=== PATIENT | female | born 1980 | race Two or more races ===

== ENCOUNTER 2017-01-30 09:34 | Emergency (ER) | payer SELFPAY ==
[2017-01-30 09:45] VITALS: BP 148/101
[2017-01-30] MEDS ORDERED: ONDANSETRON PF 4 MG/2 ML VIAL. IV ONE (10:00)
[2017-01-30] MEDS ORDERED: IV NORMAL SALINE 1000ML BAG 1,000 ML IV ONE (10:00)
[2017-01-30 10:31] LABS: CREATININE 0.6 mg/dL (0.6-1.0); GFR 112.5
[2017-01-30 10:32] LABS: POTASSIUM 3.8 mmol/L (3.5-5.1)
[2017-01-30 10:46] LABS: BASO % 0 % (0-3); EOS % 2 % (0-3); HEMATOCRIT 36.1 % (36.0-47.0); HEMOGLOBIN 11.3 g/dL (12.0-15.5); LYMPH # 1.9 x10^3/uL (1.0-4.8); LYMPH % 22 % (24-48); MEAN CORPUSCULAR HEMOGLOBIN 26 pg (25-35); MEAN CORPUSCULAR HGB CONC 31 g/dL (31-37); MEAN CORPUSCULAR VOLUME 83 fL (79-100); MONO % 6 % (0-9); NEUT % 71 % (31-73); PLATELET COUNT 316 x10^3/uL (140-400); RED BLOOD COUNT 4.35 x10^6/uL (3.50-5.40); RED CELL DISTRIBUTION WIDTH 15.2 % (11.5-14.5); WHITE BLOOD COUNT 8.6 x10^3/uL (4.0-11.0)
[2017-01-30 10:53] LABS: BILIRUBIN,URINE NEGATIVE (NEG); GLUCOSE,URINE NEGATIVE (NEG); NITRITE,URINE NEGATIVE (NEG); PROTEIN,URINE NEGATIVE (NEG-TRACE); UROBILINOGEN,URINE 0.2 mg/dL (0.2 mg/dL)
[2017-01-30 11:19] LABS: BACTERIA,URINE MANY /HPF (0-FEW); RBC,URINE 0 /HPF (0-2)
--- NOTE | 2017-01-30 11:19 | EKG ---
[facility] [address] [place] [address] Test Date: 2017-01-30 Test Time: 09:59:08 Pat Name: KAREN CRUZ Department: Room: Gender: F Intelligence Senior Sergeant: : 1980 Requested By: ETHEL FIELD Order Number: [id number] Reading MD: Benedicto Avila MD Measurements Intervals [place] Rate: 55 P: 0 VT: 166 QRS: -10 QRSD: 84 T: 11 QT: 426 QTc: 410 Interpretive Statements SINUS RHYTHM ATRIAL PREMATURE COMPLEX(ES) Electronically Signed On 02-03-2017 15:35:15 COMPUTER COMPOSITOR by Benedicto Avila MD
[2017-01-30 11:20] LABS: SQUAMOUS EPITHELIAL CELL,UR MANY /LPF
[2017-01-30] MEDS ORDERED: KETOROLAC 30 MG/ML INJ. IV ONE (11:30)
--- NOTE | 2017-01-30 12:01 | RAD ---
Chest, 2 views, 01/30/2017: History: Cough, nausea and vomiting The heart size and pulmonary vascularity are normal. There is mild linear atelectasis or scarring left base. The lungs are otherwise clear. There is no evidence of pleural fluid. IMPRESSION: Minimal left basilar linear atelectasis or scarring.
--- NOTE | 2017-01-30 12:07 | PHYS DOC ---
Past Medical History Past Medical History: High Cholesterol, Hypertension Past Surgical History: Cholecystectomy Alcohol Use: None Drug Use: None Adult General Chief Complaint Chief Complaint: DIZZY/LIGHT HEADED HPI HPI Patient is a 36 year old female who presents with lightheadedness. She states she feels dizzy which she describes as lightheaded/near fainting. She denies vertigo. Reports this morning she has mild dull bitemporal headache. Not sudden in onset, not the worst headache of her life. She denies fevers/chills, neck stiffness, vision changes, chest pain, palpitations, shortness of breath, nausea, vomiting, diarrhea. 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 At times she has tingling sensation to these fingers on her left hand, not currently present. No extremity weakness, no numbness present currently. She has history of hypertension, states no meds but manages with diet. Review of Systems Review of Systems Constitutional: Denies fever or chills Eyes: Denies change in visual acuity HENT: Denies nasal congestion or sore throat Respiratory: Denies cough or shortness of breath Cardiovascular: Denies chest pain or edema GI: Denies abdominal pain, nausea, vomiting, or diarrhea : Denies dysuria or hematuria Musculoskeletal: Denies back pain or joint pain Integument: Denies rash or skin lesions Neurologic: Reports headache, reports finger numbness All other systems were reviewed and found to be within normal limits, except as documented in this note. Current Medications Current Medications Current Medications Medications (Trade) Dose Ordered Sig/[facility] Start Time Stop Time Status Last Admin Dose Admin Ketorolac Tromethamine (Toradol) 30 mg 1X ONCE 01/30/17 11:30 01/30/17 11:31 DC 01/30/17 11:59 30 MG Ondansetron HCl (Zofran) 4 mg 1X ONCE 01/30/17 10:00 01/30/17 10:02 DC 01/30/17 10:27 4 MG Sodium Chloride 1,000 ml @ 1,000 mls/hr 1X ONCE 01/30/17 10:00 01/30/17 10:59 DC 01/30/17 10:27 1,000 MLS/HR Allergies Allergies Allergies Coded Allergies Type Severity Reaction Last Updated Verified No Known Drug Allergies 07/25/13 No Physical Exam Physical Exam Constitutional: Well developed, well nourished, no acute distress, non-toxic appearance. HENT: Normocephalic, atraumatic, bilateral external ears normal, oropharynx moist, nose normal. no sinus tenderness. Eyes: PERRLA, EOMI, conjunctiva normal, no discharge. Neck: supple, no stridor. no meningismus. Cardiovascular: RRR, no murmurs, no edema. Lungs & Thorax: LCTAB, no wheezing, no respiratory distress. Abdomen: soft, nontender, nondistended. Skin: Warm, dry, no erythema, no rash. Back: No tenderness. Extremities: No tenderness, no edema. Neurologic: Alert and oriented X 3, cranial nerves 2-12 grossly intact, symmetric strength/sensation to upper & lower extremities, no focal deficits noted. Psychologic: Affect normal, judgement normal, mood normal. Current Patient Data Vital Signs Vital Signs Date Time Temp Pulse Resp B/P (MAP) Pulse Ox O2 Delivery O2 Flow Rate FiO2 01/30/17 09:45 98.6 73 16 148/101 (117) 99 Room Air 98.6 Lab Values Laboratory Tests Test 01/30/17 09:50 01/30/17 10:25 White Blood Count 8.6 x10^3/uL (4.0-11.0) Red Blood Count 4.35 x10^6/uL (3.50-5.40) Hemoglobin 11.3 g/dL (12.0-15.5) L Hematocrit 36.1 % (36.0-47.0) Mean Corpuscular Volume 83 fL (79-100) Mean Corpuscular Hemoglobin 26 pg (25-35) Mean Corpuscular Hemoglobin Concent 31 g/dL (31-37) Red Cell Distribution Width 15.2 % (11.5-14.5) H Platelet Count 316 x10^3/uL (140-400) Neutrophils (%) (Auto) 71 % (31-73) Lymphocytes (%) (Auto) 22 % (24-48) L Monocytes (%) (Auto) 6 % (0-9) Eosinophils (%) (Auto) 2 % (0-3) Basophils (%) (Auto) 0 % (0-3) Neutrophils # (Auto) 6.1 x10^3uL (1.8-7.7) Lymphocytes # (Auto) 1.9 x10^3/uL (1.0-4.8) Monocytes # (Auto) 0.5 x10^3/uL (0.0-1.1) Eosinophils # (Auto) 0.1 x10^3/uL (0.0-0.7) Basophils # (Auto) 0.0 x10^3/uL (0.0-0.2) Sodium Level 139 mmol/L (136-145) Potassium Level 3.8 mmol/L (3.5-5.1) Chloride Level 105 mmol/L (98-107) Carbon Dioxide Level 24 mmol/L (21-32) Anion Gap 10 (6-14) Blood Urea Nitrogen 10 mg/dL (7-20) Creatinine 0.6 mg/dL (0.6-1.0) Estimated GFR (Cockcroft-Gault) 112.5 Glucose Level 92 mg/dL (70-99) Calcium Level 9.0 mg/dL (8.5-10.1) Magnesium Level 2.0 mg/dL (1.8-2.4) Urine Collection Type Unknown Urine Color Yellow Urine Clarity Clear Urine pH 6.0 Urine Specific [place] <=1.005 Urine Protein Negative mg/dL (NEG-TRACE) Urine Glucose (UA) Negative mg/dL (NEG) Urine Ketones (Stick) Negative mg/dL (NEG) Urine Blood Negative (NEG) Urine Nitrite Negative (NEG) Urine Bilirubin Negative (NEG) Urine Urobilinogen Dipstick 0.2 mg/dL (0.2 mg/dL) Urine Leukocyte Esterase Small (NEG) Urine RBC 0 /HPF (0-2) Urine WBC 1-4 /HPF (0-4) Urine Squamous Epithelial Cells Many /LPF Urine Bacteria Many /HPF (0-FEW) Laboratory Tests 01/30/17 09:50 Laboratory Tests 01/30/17 09:50 EKG EKG interpreted by me: [id number]: NSR rate 55, no acute ST/T changes, normal intervals , PACs.[] Radiology/Procedures Radiology/Procedures PROCEDURE: CHEST PA & LATERAL Chest, 2 views, 01/30/2017: History: Cough, nausea and vomiting The heart size and pulmonary vascularity are normal. There is mild linear atelectasis or scarring left base. The lungs are otherwise clear. There is no evidence of pleural fluid. IMPRESSION: Minimal left basilar linear atelectasis or scarring. DICTATED and SIGNED BY: FIGUEROA DEE MD DATE: 01/30/17 0956[] Course & Med Decision Making Course & Med Decision Making Pertinent Labs and Imaging studies reviewed. (See chart for details) The patient presents with lightheadedness. Gave IV fluids & pain medication. Headache was mild & no serious cause for lightheadedness was identified. She had some finger tingling which is most consistent with carpal tunnel syndrome particularly given her repetitive work. This does not seem related to acute complaint of near syncope. Recommend rest, hydration, tylenol/ibuprofen for headache. Try wrist splint for symptoms of carpal tunnel. Follow up with primary care in 2-3 days if not improving, may require orthopedic evaluation & possibly surgery. Come back for high fever, severe or sudden onset headache, focal neuro deficit, any otherwise worsening condition. Discharged home in stable condition. Dragon Disclaimer Dragon Disclaimer This electronic medical record was generated, in whole or in part, using a voice recognition dictation system. Departure Departure Impression: Primary Impression: Carpal tunnel syndrome Additional Impression: Lightheadedness Disposition: HOME, SELF-CARE Condition: STABLE Referrals: NO PCP (PCP) GUI DUPREE MD Patient Instructions: Carpal Tunnel Syndrome, [id number], Dizziness, Easy-to- Read Additional Instructions: You were seen in the emergency department today for lightheadedness. Your tests here did not show a serious cause of symptoms. Your hand numbness is related to carpal tunnel syndrome. Try wearing the wrist splint. Take ibuprofen for pain/numbness. Drink fluids to stay hydrated. Follow up with Dr. Dupree or the primary care doctor of your choice in 2-3 days. Come back for high fever, worst headache of your life, severe chest pain or shortness of breath, numbness or weakness in arms or legs, any otherwise worsening condition. Problem Qualifiers ETHEL FIELD MD Jan 30, 2017 12:07
== END 2017-01-30 12:48 | disposition home or self-care (01) ==
LOC: ER 09:34
DX: G56.00 Carpal tunnel syndrome, unspecified upper limb (principal); R42 Dizziness and giddiness; R51 Headache; E78.00 Pure hypercholesterolemia, unspecified; I10 Essential (primary) hypertension
CPT/HCPCS: 36415; 71020; 80048; 81001; 83735; 85025; 87086; 93005; 96361; 96374; 96375; 99285; J1885; J2405; J7030; 96360

== ENCOUNTER 2017-04-02 17:03 | Emergency (ER) | payer OTHER ==
[2017-04-02 17:35] LABS: URINE HCG POC HCG NEGATIVE (Negative)
[2017-04-02 17:53] LABS: ADD MAN DIFF? NO
[2017-04-02 17:57] LABS: BASO % 1 % (0-3); BILIRUBIN,URINE NEGATIVE (NEG); CLARITY,URINE CLEAR; COLOR,URINE YELLOW; EOS # 0.2 x10^3/uL (0.0-0.7); EOS % 2 % (0-3); GLUCOSE,URINE NEGATIVE (NEG); HEMATOCRIT 27.1 % (36.0-47.0); HEMOGLOBIN 8.7 g/dL (12.0-15.5); LYMPH # 1.8 x10^3/uL (1.0-4.8); LYMPH % 24 % (24-48); MEAN CORPUSCULAR HEMOGLOBIN 25 pg (25-35); MEAN CORPUSCULAR HGB CONC 32 g/dL (31-37); MEAN CORPUSCULAR VOLUME 77 fL (79-100); MONO # 0.4 x10^3/uL (0.0-1.1); MONO % 5 % (0-9); NEUT # 5.2 x10^3uL (1.8-7.7); NEUT % 69 % (31-73); NITRITE,URINE NEGATIVE (NEG); PH,URINE 5.5; PLATELET COUNT 323 x10^3/uL (140-400); PROTEIN,URINE NEGATIVE (NEG-TRACE); RED BLOOD COUNT 3.53 x10^6/uL (3.50-5.40); RED CELL DISTRIBUTION WIDTH 15.3 % (11.5-14.5); UROBILINOGEN,URINE 0.2 mg/dL (0.2 mg/dL); WHITE BLOOD COUNT 7.7 x10^3/uL (4.0-11.0)
[2017-04-02 18:03] LABS: BACTERIA,URINE MODERATE /HPF (0-FEW); RBC,URINE 0 /HPF (0-2); WBC,URINE RARE /HPF (0-4)
[2017-04-02 18:04] LABS: SQUAMOUS EPITHELIAL CELL,UR MOD /LPF
[2017-04-02 18:12] LABS: ANION GAP 9 (6-14); BLOOD UREA NITROGEN 8 mg/dL (7-20); BUN/CREATININE RATIO 11 (6-20); CALCIUM 8.8 mg/dL (8.5-10.1); CARBON DIOXIDE 26 mmol/L (21-32); CHLORIDE 104 mmol/L (98-107); CREATININE 0.7 mg/dL (0.6-1.0); GFR 94.2; GLUCOSE 115 mg/dL (70-99); POTASSIUM 3.4 mmol/L (3.5-5.1); SODIUM 139 mmol/L (136-145)
[2017-04-02 18:19] LABS: ALBUMIN 3.4 g/dL (3.4-5.0); ALBUMIN/GLOBULIN RATIO 0.9 (1.0-1.7); ALK PHOS 72 U/L (46-116); ALT (SGPT) 20 U/L (14-59); AST (SGOT) 15 U/L (15-37); TOTAL BILIRUBIN 0.1 mg/dL (0.2-1.0); TOTAL PROTEIN 7.2 g/dL (6.4-8.2)
[2017-04-02] MEDS: MORPHINE SULFATE 10 MG/ML VIAL. IV ×2 (18:26)
[2017-04-02] MEDS: IOHEXOL 300 MG/ML 100ML VIAL. IV ×2 (18:31)
== END 2017-04-02 19:45 | disposition home or self-care (01) ==
LOC: ER 17:03
DX: G89.29 Other chronic pain (principal); M54.5 Low back pain; E78.00 Pure hypercholesterolemia, unspecified; I10 Essential (primary) hypertension; Z90.49 Acquired absence of other specified parts of digestive tract
CPT/HCPCS: 36415; 74177; 80053; 81001; 81025; 85025; 87086; 96374; 99285-25; J2270; Q9967

== ENCOUNTER 2017-06-19 16:37 | Emergency (ER) | payer OTHER | END 2017-06-19 17:22 | disposition home or self-care (01) | LOC: ER 17:22 | DX: J40 Bronchitis, not specified as acute or chronic (principal); J06.9 Acute upper respiratory infection, unspecified; J45.909 Unspecified asthma, uncomplicated; E78.00 Pure hypercholesterolemia, unspecified; I10 Essential (primary) hypertension | CPT/HCPCS: 99283 ==

== ENCOUNTER 2017-11-12 16:55 | Emergency (ER) | payer OTHER ==
[~2017-11-12] VITALS: Ht 170.2 cm; Wt 88.0 kg
[~2017-11-12 16:55] MED LIST: BENZ100C PO; PRED20TA PO; TRAM50TA PO
[2017-11-12 17:12] VITALS: BP 129/76
--- NOTE | 2017-11-12 17:12 | PHYS DOC ---
Past Medical History Past Medical History: Asthma, High Cholesterol, Hypertension Past Surgical History: Cholecystectomy Alcohol Use: Occasionally Drug Use: None Adult General Chief Complaint Chief Complaint: MECHANICAL FALL HPI HPI Patient is a 36 year old female presented to ER today for evaluation of left ankle pain. Patient said she was walking outside this morning to get ready for work. Patient tripped on her left foot, twisted her left ankle. Patient fell on her knees, scratched her knees. Patient denied any head injury, no neck injury, no upper extremities injury. Patient denies any knee pain, she had been walking all day long however whenever she put any weight on her left ankle she started having pain so she came in for evaluation. Review of Systems Review of Systems Constitutional: Denies fever or chills [] Eyes: Denies change in visual acuity, redness, or eye pain [] HENT: Denies nasal congestion or sore throat [] Respiratory: Denies cough or shortness of breath [] Cardiovascular: No additional information not addressed in HPI [] GI: Denies abdominal pain, nausea, vomiting, bloody stools or diarrhea [] : Denies dysuria or hematuria [] Musculoskeletal:Positive for left ankle pain Integument: Denies rash or skin lesions [] Neurologic: Denies headache, focal weakness or sensory changes [] Endocrine: Denies polyuria or polydipsia [] All other systems were reviewed and found to be within normal limits, except as documented in this note. Current Medications Current Medications Current Medications Medications (Trade) Dose Ordered Sig/[facility] Start Time Stop Time Status Last Admin Dose Admin Acetaminophen/ Hydrocodone Bitart (Lortab 5/325) 1 tab 1X ONCE 11/12/17 17:15 11/12/17 17:16 DC 11/12/17 17:26 1 TAB Diphtheria/ Tetanus/Acell Pertussis (Boostrix) 0.5 ml ONCE ONCE 11/12/17 17:15 11/12/17 17:16 DC Ibuprofen (Motrin) 800 mg 1X ONCE 11/12/17 17:15 11/12/17 17:16 DC 11/12/17 17:27 800 MG Allergies Allergies Allergies Coded Allergies Type Severity Reaction Last Updated Verified No Known Drug Allergies 07/25/13 No Physical Exam Physical Exam Constitutional: Well developed, well nourished, no acute distress, non-toxic appearance. [] HENT: Normocephalic, atraumatic, bilateral external ears normal,nose normal. [] Eyes: PERRLA, EOMI, conjunctiva normal, no discharge. [] Neck: Normal range of motion, no tenderness, supple, no stridor. [] Cardiovascular:Heart rate regular rhythm, no murmur [] Lungs & Thorax: Bilateral breath sounds clear to auscultation [] Abdomen: Bowel sounds normal, soft, no tenderness, no masses, no pulsatile masses. [] Skin: superficial skin abrasion on her knees bilaterally. Back: No tenderness, no CVA tenderness. [] Extremities: Left ankle is tender to palpation at the lateral malleous area, left ankle joint is stable. Bilateral knees superficial skin abrasion but there was not bony tenderness in the knees or proximal legs area. Neurologic: Alert and oriented X 3, normal motor function, normal sensory function, no focal deficits noted. [] Psychologic: Affect normal, judgement normal, mood normal. [] Current Patient Data Vital Signs Vital Signs Date Time Temp Pulse Resp B/P (MAP) Pulse Ox O2 Delivery O2 Flow Rate FiO2 11/12/17 17:12 98.2 74 18 129/76 (93) 98 Room Air 98.2 EKG EKG [] Radiology/Procedures Radiology/Procedures xray of left ankle : no fracture or dislocation [] Impressions: left ankle sprain Course & Med Decision Making Course & Med Decision Making Pertinent Labs and Imaging studies reviewed. (See chart for details) WILL PLACE AN AIRCAST ON LEFT ANKLE, DISCHARGE HOME WITH CRUTCHES, PAIN MEDICATION, FOLLOW UP WITH PCP FOR REEVALUATION IN A WEEK. Dragon Disclaimer Dragon Disclaimer This electronic medical record was generated, in whole or in part, using a voice recognition dictation system. Departure Departure Impression: Primary Impression: Sprain of ankle, left Disposition: 01 HOME, SELF-CARE Condition: STABLE Referrals: ANMOL ROJAS MD FOLLOW UP WITH THIS ORTHOPEDIC DOCTOR FOR FURTHER EVALUATION IF YOU CONTINUE TO HAVE PAIN. Patient Instructions: Ankle Sprain Scripts Tramadol Hcl (TRAMADOL HCL) 50 Mg Tablet 50 MG PO Q6HRS PRN for PAIN, #20 TAB Prov: JULIA PERLA DO 11/12/17 JULIA PERLA DO Nov 12, 2017 17:12
[2017-11-12] MEDS ORDERED: IBUPROFEN 800 MG TABLET. PO ONE (17:15)
[2017-11-12] MEDS ORDERED: DIPHTH,PERTUSS(ACELL),TET TOX 0.5 ML DISP.SYRIN. VAX IM ONE (17:15)
[2017-11-12] MEDS ORDERED: HYDROcodone/APAP 5/325MG 1 TAB TABLET PO ONE (17:15)
[2017-11-12] MEDS ORDERED: TRAM50TA PO (17:37)
--- NOTE | 2017-11-13 08:18 | RAD ---
Left ankle radiograph 11/12/2017 5:06 PM INDICATION: Fall, left ankle injury COMPARISON: None available. TECHNIQUE: 3 views of the left ankle are provided. FINDINGS: There is no acute fracture or dislocation. Bone mineralization is within normal limits. Joint spaces are maintained. Mild regional soft tissue swelling. There is no soft tissue gas or osseous erosion. IMPRESSION: No acute fracture or dislocation. Electronically signed by: Rhonda Joya MD (11/13/2017 8:15 AM) [id number]
== END 2017-11-12 18:05 | disposition home or self-care (01) ==
LOC: ER 16:55
DX: S93.402A Sprain of unspecified ligament of left ankle, initial encounter (principal); J45.909 Unspecified asthma, uncomplicated; E78.00 Pure hypercholesterolemia, unspecified; I10 Essential (primary) hypertension; X50.1XXA Overexertion from prolonged static or awkward postures, initial encounter; Y93.01 Activity, walking, marching and hiking; Y92.89 Other specified places as the place of occurrence of the external cause; Y99.8 Other external cause status
CPT/HCPCS: 29515; 73610; 90471; 90715; 99284-25

== ENCOUNTER 2020-04-17 19:31 | Emergency (ER) | payer MEDICAID, OTHER ==
[~2020-04-17] VITALS: Ht 175.3 cm; Wt 86.0 kg
[2020-04-17] MEDS ORDERED: IV NORMAL SALINE 1000ML BAG 1,000 ML IV ONE (20:00)
[2020-04-17 20:10] LABS: BASO % 1 % (0-3); EOS # 0.1 x10^3/uL (0.0-0.7); EOS % 2 % (0-3); HEMATOCRIT 40.4 % (36.0-47.0); HEMOGLOBIN 13.4 g/dL (12.0-15.5); LYMPH # 2.7 x10^3/uL (1.0-4.8); LYMPH % 34 % (24-48); MEAN CORPUSCULAR HEMOGLOBIN 28 pg (25-35); MEAN CORPUSCULAR HGB CONC 33 g/dL (31-37); MEAN CORPUSCULAR VOLUME 85 fL (79-100); MONO # 0.4 x10^3/uL (0.0-1.1); MONO % 5 % (0-9); NEUT # 4.7 x10^3/uL (1.8-7.7); NEUT % 59 % (31-73); PLATELET COUNT 268 x10^3/uL (140-400); RED BLOOD COUNT 4.76 x10^6/uL (3.50-5.40); RED CELL DISTRIBUTION WIDTH 14.5 % (11.5-14.5); WHITE BLOOD COUNT 7.9 x10^3/uL (4.0-11.0)
[2020-04-17] MEDS ORDERED: ALPRAZolam 0.5 MG TABLET PO ONE (20:15)
--- NOTE | 2020-04-17 20:15 | PHYS DOC ---
Past Medical History Past Medical History: Asthma, High Cholesterol, Hypertension Past Surgical History: Cholecystectomy Smoking Status: Never Smoker Alcohol Use: Occasionally Drug Use: None General Adult EDM: Chief Complaint: CHEST PAIN HPI: HPI: Patient is a 39 year old female, manages her primary language, used house front man service for medical interpretation, front man #[id number] interpreted HPI and physical examination. Patient states this is her third episode since April 032020 of sudden onset of chest pain. Patient reports her chest pains have been, not ever since her went to nursing home. Patient states the first time it happened she did not seek medical care as the pain only lasted under an hour, patient states the second time it happened last Thursday she was seen at [facility] emergency department and had a cardiac work-up, was told there were no acute findings and was discharged home for a follow-up with her primary care physician. Patient states that she did not want to see her primary care physician and decided she would come here for a third episode of sudden onset of chest pain that started at 1900, just prior to arrival, patient states the pain is in the center of her chest, does not radiate anywhere, states that it makes her feel short of breath, makes her feel like her heart is racing, makes her feel like her mouth is dry, makes her feel anxious. Patient states she is not nauseated, has no abdominal pain, vomiting, diarrhea, or constipation. Patient denies any diaphoretic episodes, does not feel dizzy, has no visual changes, has no fever or chills at home, has no loss of smell or loss of taste, has no body aches or general malaise. However patient does state that after her chest pains and anxious episodes subside, she does feel a little tired into the evening. Patient denies homicidal or suicidal ideation. Patient complains of increased thirst however denies increased urination. Patient denies family history of medical problems, stating both her mother and her father are alive and healthy, did not have heart disease nor diabetes. Patient does not take any medications at home [id number] nor prescription. Patient states she had her gallbladder removed when she was 15 years old, her last menstrual period was just a few days ago, states she takes a Depo shot only every 3 months. Review of Systems: Review of Systems: 14 body systems of review of systems have been reviewed. See HPI for pertinent positives and negative responses, otherwise all other systems are negative, nonpertinent or noncontributory. Heart Score: HEART Score for Chest Pain: HEART Score for Chest Pain Response (Comments) Value History Slighlty/Non-Suspicious 0 ECG Normal 0 Age < 45 0 Risk Factors No Risk Factors 0 Troponin < Normal Limit 0 Total 0 Risk Factors: Risk Factors: DM, Current or recent (<one month) smoker, HTN, HLP, family history of CAD, obesity. Risk Scores: Score 0 - 3: 2.5% MACE over next 6 weeks - Discharge Home Score 4 - 6: 20.3% MACE over next 6 weeks - Admit for Clinical Observation Score 7 - 10: 72.7% MACE over next 6 weeks - Early Invasive Strategies Allergies: Allergies: Allergies Coded Allergies Type Severity Reaction Last Updated Verified No Known Drug Allergies 07/25/13 No Physical Exam: PE: Constitutional: Well developed, well nourished, no acute distress, non-toxic appearance. Patient is anxious in appearance. HENT: Normocephalic, atraumatic, bilateral external ears normal, oropharynx moist, no oral exudates, nose normal. Eyes: PERRLA, EOMI, conjunctiva normal, no discharge. Neck: Normal range of motion, no tenderness, supple, no stridor. Cardiovascular:Heart rate regular rhythm, no murmur, heart sounds S1-S2 auscultation. Lungs & Thorax: Bilateral breath sounds clear to auscultation all lung robles. No adventitious lung sounds appreciated. Abdomen: Bowel sounds normal, soft, no tenderness, no masses, no pulsatile masses. Skin: Warm, dry, no erythema, no rash. Back: No tenderness, no CVA tenderness. Extremities: No tenderness, no cyanosis, no clubbing, ROM intact, no edema. Neurologic: Alert and oriented X 3, normal motor function, normal sensory function, no focal deficits noted. Psychologic: Affect normal, judgement normal, mood normal. Current Patient Data: Labs: Laboratory Tests Test 04/17/20 19:50 04/17/20 20:25 White Blood Count 7.9 x10^3/uL Red Blood Count 4.76 x10^6/uL Hemoglobin 13.4 g/dL Hematocrit 40.4 % Mean Corpuscular Volume 85 fL Mean Corpuscular Hemoglobin 28 pg Mean Corpuscular Hemoglobin Concent 33 g/dL Red Cell Distribution Width 14.5 % Platelet Count 268 x10^3/uL Neutrophils (%) (Auto) 59 % Lymphocytes (%) (Auto) 34 % Monocytes (%) (Auto) 5 % Eosinophils (%) (Auto) 2 % Basophils (%) (Auto) 1 % Neutrophils # (Auto) 4.7 x10^3/uL Lymphocytes # (Auto) 2.7 x10^3/uL Monocytes # (Auto) 0.4 x10^3/uL Eosinophils # (Auto) 0.1 x10^3/uL Basophils # (Auto) 0.0 x10^3/uL Sodium Level 142 mmol/L Potassium Level 3.5 mmol/L Chloride Level 104 mmol/L Carbon Dioxide Level 26 mmol/L Anion Gap 12 Blood Urea Nitrogen 10 mg/dL Creatinine 0.7 mg/dL Estimated GFR (Cockcroft-Gault) 92.7 BUN/Creatinine Ratio 14 Glucose Level 141 mg/dL Calcium Level 9.5 mg/dL Magnesium Level 2.2 mg/dL Total Bilirubin 0.2 mg/dL Aspartate Amino Transf (AST/SGOT) 15 U/L Alanine Aminotransferase (ALT/SGPT) 28 U/L Alkaline Phosphatase 81 U/L Creatine Kinase 114 U/L Creatine Kinase MB (Mass) 0.7 ng/mL Creatine Kinase MB Relative Index 0.6 % Troponin I Quantitative < 0.017 ng/mL Total Protein 7.9 g/dL Albumin 3.9 g/dL Albumin/Globulin Ratio 1.0 Lipase 160 U/L Urine Collection Type Unknown Urine Color Yellow Urine Clarity Clear Urine pH 6.5 Urine Specific Industry <=1.005 Urine Protein Negative mg/dL Urine Glucose (UA) Negative mg/dL Urine Ketones (Stick) Negative mg/dL Urine Blood Negative Urine Nitrite Negative Urine Bilirubin Negative Urine Urobilinogen Dipstick 0.2 mg/dL Urine Leukocyte Esterase Negative Urine RBC 0 /HPF Urine WBC 0 /HPF Urine Squamous Epithelial Cells Occ /LPF Urine Bacteria 0 /HPF Urine Test Negative Urine Opiates Screen Neg Urine Methadone Screen Neg Urine Barbiturates Neg Urine Phencyclidine Screen Neg Urine Amphetamine/Methamphetamine Neg Urine Benzodiazepines Screen Neg Urine Cocaine Screen Neg Urine Cannabinoids Screen Neg Urine Ethyl Alcohol Neg Current Medications Medications (Trade) Dose Ordered Sig/Audra Route PRN Reason Start Time Stop Time Status Last Admin Dose Admin Alprazolam (Xanax) 1 mg 1X ONCE PO 04/17/20 20:15 04/17/20 20:16 DC 04/17/20 20:18 Sodium Chloride 1,000 ml @ 1,000 mls/hr 1X ONCE IV 04/17/20 20:00 04/17/20 20:59 DC 04/17/20 20:19 Ketorolac Tromethamine (Toradol 15mg Vial) 15 mg STK-MED ONCE .ROUTE 04/17/20 20:16 04/17/20 20:16 DC Ketorolac Tromethamine (Toradol 15mg Vial) 15 mg 1X ONCE IVP 04/17/20 20:30 04/17/20 20:31 DC 04/17/20 20:19 Morphine Sulfate (Morphine Sulfate) 4 mg 1X ONCE IV 04/17/20 21:30 04/17/20 21:31 DC EKG: EKG: EKG performed at 1939 by ED nursing staff, shows a normal sinus rhythm without ectopy, heart rate 86 bpm, TX interval 0.162, QTc interval 0.446, no acute STEMI, no ACS, no acute ischemia appreciated, EKG interpreted by ED attending physician Dr. Wylie. Radiology/Procedures: Radiology/Procedures: PATIENT: KAREN VASQUEZ ACCOUNT: [id number] : 1980 LOCATION: ER AGE: 39 SEX: F EXAM STATUS: REG ER ORD. PHYSICIAN: GUI HILARIO APRN REASON: CHEST PAIN PROCEDURE: CHEST PA & LATERAL XR CHEST 2V History: Reason: CHEST PAIN / Spl. Instructions: / History: Comparison: January 30, 2017 Findings: No consolidation or pleural effusion. Normal heart size. No pneumothorax. Linear left basilar atelectasis or scarring. Impression: 1. No acute cardiopulmonary process. Electronically signed by: Gabe Morgan DO (04/17/2020 9:29 PM) [facility] DICTATED and SIGNED BY: GABE MORGAN DO DATE: 04/17/20 [id number] 0 Course & Med Decision Making: Course & Med Decision Making Pertinent Labs and Imaging studies reviewed. (See chart for details) 39-year-old female, vital signs reviewed, presents to the emergency department complaining of an acute onset of chest pain just prior to arrival. Patient's physical examination was unremarkable, this is most likely an anxiety exacerbation, related to patient's chief complaint a ER work-up to rule out cardiopulmonary process was initiated along with urinalysis assay and urine drug screen. Awaiting results at this time. Patient's cardiopulmonary work-up was negative, no concerning findings, the patient's heart score equals 0, urinalysis assay and urine drug screen were both negative. Patient's blood pressure during physical examination was 190/100, however subsequent blood pressures and reexamination blood pressures were more normotensive, reexamination blood pressure was 147/79, patient currently denies chest pain, or shortness of breath. Discussed findings with patient, this is most likely chest wall pain exacerbated by anxiety due to recent life changes. Encourage patient to follow-up with primary care physician for ongoing anxiety and discomfort problems, patient gave verbal understanding of discharge home instructions, follow-up care with her primary doctor, return to emergency department precautions and concerns, discharged home without incident. Dragon Disclaimer: Dragbry Disclaimer: This electronic medical record was generated, in whole or in part, using a voice recognition dictation system. Departure Departure Impression: Primary Impression: Chest wall pain Additional Impression: Anxiety Disposition: 01 DC HOME SELF CARE/HOMELESS Condition: GOOD Referrals: NO PCP (PCP) GUI AVZQUEZ MD Patient Instructions: Chest Wall Pain Additional Instructions: You have been worked up in the emergency department for chest pain. There are no concerning lab values or signs of cardiac problems or pulmonary problems. Please follow-up with your primary care physician for ongoing chest pains. Return to the emergency department for worsening symptoms or other concerns. EMERGENCY DEPARTMENT GENERAL DISCHARGE INSTRUCTIONS Thank you for coming to [facility] Emergency Department (ED) today and trusting us with you care. We trust that you had a positive experience in our Emergency Department. If you wish to speak to the department management, you may call the Director at [phone]. YOUR FOLLOW UP INSTRUCTIONS ARE FOLLOWS: 1. Do you have a private Doctor? If you do not have a private doctor, please ask for a resource list of physicians or clinics that may be able to assist you with follow up care. 2. The Emergency Physicain has interpreted your x-rays. The X-Ray specialist will also review them. If there is a change in the findings, you will be notified in 48 hours when at all possible. 3. A lab test or culture has been done, your results will be reviewed and you will be notified if you need a change in treatment. ADDITIONAL INSTRUCTIONS AND INFORMATION: 1. Your care today has been supervised by a physician who is specially trained in emergency care. Many problems require more than one evaluation for a complete diagnosis and treatment. We recommend that you schedule your follow up appointment as recommended to ensure complete treatment of you illness or injury. If you are unable to obtain follow up care and continue to have a problem, or if your condition worsens, we recommend that you return to the ED. 2. We are not able to safely determine your condition over the phone nor are we able to give sound medical advice over the phone. For these safety reasons, if you call for medical advice we will ask you to come to the ED for further evaluation. 3. If you have any questions regarding these discharge instructions please call the ED at [phone]. SAFETY INFORMATION: In the interest of safety, wellness, and injury prevention; we encourage you to wear your sealbelt, if you smoke; quite smoking, and we encourage family to use a pro tective helmet for bicycling and other sporting events that present an increased risk for head injury. IF YOUR SYMPTOMS WORSEN OR NEW SYMPTOMS DEVELOP, OR YOU HAVE CONCERNS ABOUT YOUR CONDITION; OR IF YOUR CONDITION WORSENS WHILE YOU ARE WAITING FOR YOUR FOLLOW UP APPOINTMENT; EITHER CONTACT YOUR PRIMARY CARE DOCTOR, THE PHYSICIAN WHOSE NAME AND NUMBER YOU WERE GIVEN, OR RETURN TO THE ED IMMEDIATELY. GUI HILARIO APRN Apr 17, 2020 20:15
[2020-04-17] MEDS ORDERED: KETOROLAC 15 MG/ML VIAL. ONE (20:16)
[2020-04-17 20:23] LABS: CALCIUM 9.5 mg/dL (8.5-10.1); CREATININE 0.7 mg/dL (0.6-1.0); GFR 92.7; POTASSIUM 3.5 mmol/L (3.5-5.1)
[2020-04-17 20:28] LABS: ALBUMIN 3.9 g/dL (3.4-5.0); MAGNESIUM 2.2 mg/dL (1.8-2.4); TOTAL BILIRUBIN 0.2 mg/dL (0.2-1.0); TOTAL PROTEIN 7.9 g/dL (6.4-8.2)
[2020-04-17] MEDS ORDERED: KETOROLAC 15 MG/ML VIAL. IVP ONE (20:30)
[2020-04-17 20:41] LABS: BILIRUBIN,URINE NEGATIVE (NEG); CLARITY,URINE CLEAR; COLOR,URINE YELLOW; NITRITE,URINE NEGATIVE (NEG); PH,URINE 6.5 (<5.0-8.0); PROTEIN,URINE NEGATIVE (NEG-TRACE); UROBILINOGEN,URINE 0.2 mg/dL (0.2 mg/dL)
[2020-04-17 20:43] LABS: U PREG PATIENT NEGATIVE (NEG)
[2020-04-17 20:47] LABS: BACTERIA,URINE 0 /HPF (0-FEW); RBC,URINE 0 /HPF (0-2); WBC,URINE 0 /HPF (0-4)
[2020-04-17 20:48] LABS: BARBITURATES NEG (NEG); BENZODIAZEPINES NEG (NEG); CANNABINOIDS NEG (NEG); COCAINE NEG (NEG); METHADONE NEG (NEG); OPIATES NEG (NEG); PHENCYCLIDINE NEG (NEG)
[2020-04-17 20:51] LABS: AMPHETAMINE/METHAMPHETAMINE NEG (NEG)
[2020-04-17 21:00] VITALS: BP 140/79
[2020-04-17] MEDS ORDERED: MORPHINE SULFATE 4 MG/ML VIAL. IV ONE (21:30)
--- NOTE | 2020-04-17 21:31 | RAD ---
XR CHEST 2V History: Reason: CHEST PAIN / Spl. Instructions: / History: Comparison: January 30, 2017 Findings: No consolidation or pleural effusion. Normal heart size. No pneumothorax. Linear left basilar atelectasis or scarring. Impression: 1. No acute cardiopulmonary process. Electronically signed by: Gabe Morgan DO (04/17/2020 9:29 PM) [facility]
--- NOTE | 2020-04-18 09:03 | EKG ---
[facility] [address] [place] [address] Test Date: 2020-04-17 Test Time: 19:39:57 Pat Name: KAREN VASQUEZ Department: Room: Gender: F Remedy Developer: : 1980 Requested By: GUI HILARIO Order Number: [id number] Reading MD: Measurements Intervals [place] Rate: 86 P: 31 ME: 162 QRS: -24 QRSD: 90 T: 33 QT: 370 QTc: 446 Interpretive Statements SINUS RHYTHM LEFTWARD AXIS OTHERWISE NORMAL ECG RI6.02 No previous ECG available for comparison
== END 2020-04-17 22:15 | disposition home or self-care (01) ==
LOC: ER 19:31
DX: R07.89 Other chest pain (principal); F41.9 Anxiety disorder, unspecified; J45.909 Unspecified asthma, uncomplicated; E78.00 Pure hypercholesterolemia, unspecified; I10 Essential (primary) hypertension; Z90.49 Acquired absence of other specified parts of digestive tract
CPT/HCPCS: 36415; 71046; 80053; 80307; 81001; 81025; 82553; 83690; 83735; 84484; 85025; 93005; 96361; 96374; 96375; 99285; J1885; J2270; J7030